=== PATIENT | male | born 1945 | race Caucasian/White ===

== ENCOUNTER 2016-11-07 07:10 | Day surgery (SDC) | payer MEDICARE, OTHER ==
[2016-11-07] MEDS ORDERED: ONDANSETRON HCL INJ/PF 4 MG/2 ML SDV ONE (07:42)
[2016-11-07] MEDS ORDERED: NALOXONE HCL INJ/PF 0.4 MG/1 ML SDV ONE (07:43)
[2016-11-07] MEDS ORDERED: FLUMAZENIL INJ 0.5 MG/5 ML VIAL IV ONE (07:43)
[2016-11-07] MEDS ORDERED: FENTANYL CITRATE INJ/PF 100 MCG/2 ML AMPUL ONE (07:43)
[2016-11-07] MEDS ORDERED: GLUCAGON,HUMAN RECOMB 1 MG INJ ONE (07:44)
[2016-11-07] MEDS ORDERED: EPINEPHRINE INJ 1 MG/10 ML DISP.SYRIN ONE (07:44)
[2016-11-07 07:45] LABS: HEMOGLOBIN 11.2 g/dL (13.5-17.0); HGB HCT DIFFERENCE 1.6; MEAN CORPUSCULAR HEMOGLOBIN 32.8 pg (27.0-33.4); MEAN CORPUSCULAR HGB CONC 34.9 g/dL (32.0-36.0); MEAN CORPUSCULAR VOLUME 94 fl (80-97); RED BLOOD COUNT 3.41 10^6/uL (4.35-5.55); RED CELL DISTRIBUTION WIDTH 13.2 % (11.5-14.0); WHITE BLOOD COUNT 6.1 10^3/uL (4.0-10.5)
[2016-11-07] MEDS: MIDAZOLAM 2 MG/2 ML INJ ONE ×2 (08:33→08:58)
[2016-11-07] MEDS ORDERED: NA PHOS,M-B/NA PHOS,DI-BA (ADULT) 133 ML ENEMA PR ONE (08:45)
--- NOTE | 2016-11-07 09:32 | PDOC DISCHARGE SUMMARY ---
Discharge Summary (SDC) - Discharge Final Diagnosis: 3 column internal hemorrhoids Date of Surgery: 11/07/16 Discharge Date: 11/07/16 Condition: Good Treatment or Instructions: Anoscopy with hemorrhoidal banding 3. November discharge patient home when met discharge criteria. Follow-up with me in 2 weeks. Prescriptions: Docusate Sodium [Colace 100 mg Capsule] 100 mg PO BID #60 capsule Oxycodone HCl/Acetaminophen [Percocet 5-325 mg Tablet] 1 - 2 tab PO ASDIR PRN # 25 tablet PRN Reason: Discharge Diet: As Tolerated Discharge Activity: Activity As Tolerated - Stay active but avoid strenuous activity. Report the Following to Your Physician Immediately: Increase in Pain - Normal to experience some perianal discomfort but not severe pain, Fever over 101 Degrees, Unusual Bleeding - Normal to experience small amounts of bleeding. Other Items to Report to MD: inability to urinate
[2016-11-07 10:04] VITALS: BP 157/75
--- NOTE | 2016-11-13 09:04 | Operative Report ---
Operative Report DATE OF SURGERY: 11/07/16 PREOPERATIVE DIAGNOSIS: Internal hemorrhoids POSTOPERATIVE DIAGNOSIS: Internal hemorrhoids OPERATION: Anoscopy with the hemorrhoidal banding 3. SURGEON: JERRELL EDMONDS ANESTHESIA: Moderate Sedation TISSUE REMOVED OR ALTERED: Hemorrhoidal banding 3. COMPLICATIONS: None ESTIMATED BLOOD LOSS: minimal INTRAOPERATIVE FINDINGS: Prominent the left lateral internal hemorrhoidal complex and right anterior internal hemorrhoidal complex. Fairly small right posterior internal hemorrhoidal complex. Palpable submucosal smooth disc-like half centimeter lump at the left lateral anal canal. PROCEDURE: Informed consent was obtained. Patient was brought to the endoscopy suite. Digital rectal exam revealed a very smooth the disc shaped half centimeter sub- mucosal lump at the left lateral position high up on the anal canal. Anoscopy was performed no mucosal defect was noted overlying this lump although patient had prominent the 3 column internal hemorrhoids, less so at the right posterior position. Patient proceeded to have copious amount of stool that the came through the anoscope therefore the procedure was stopped and enemas were performed afterwards was able to perform the anoscopy without stool obscuring the view. Using the suction banding device 3 column internal hemorrhoidal bandings was performed. The first one at the very prominent left lateral position. Next at the prominent right anterior position. The right posterior internal hemorrhoidal complex appeared fairly small but it was the banded as well. Patient had minimal discomfort at the end of the case. Great care was taken to place the bands above the level of the dentate line.
== END 2016-11-07 10:10 | disposition home or self-care (01) ==
LOC: END 07:10
PROVIDERS: ATTEND Surgery
PROC: 06LY0CC Occlusion of Hemorrhoidal Plexus with Extraluminal Device, Open Approach (ICD-10-PCS; principal; 2016-11-07 08:30)
DX: K64.8 Other hemorrhoids (principal); E11.9 Type 2 diabetes mellitus without complications; I10 Essential (primary) hypertension; Z87.891 Personal history of nicotine dependence; Z79.84 Long term (current) use of oral hypoglycemic drugs; Z79.899 Other long term (current) drug therapy
CPT/HCPCS: 46221; 36415; 82962; 85027; J2250; J3010; A9270; J0171; J1610; J2310; J2405; J3490